=== PATIENT | female | born 1990 | race African-American/Black ===

== ENCOUNTER 2018-04-22 02:54 | Emergency (ER) | payer MEDICARE, OTHER ==
[2018-04-22 03:01] VITALS: BP 132/70; PULSE 69; RESP 18; TEMP 97.8; O2SAT 99
--- NOTE | 2018-04-22 03:30 | PD ---
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 Said she has been spotting for a week but more bleeding today. Denies any fever, chest pain, sob, n/v, dysuria, diarrhea. Pt has not seen an OBGYN for this yet. PFSH Past Medical History Medical History: Denies Significant Hx Asthma: Yes Diminished Hearing: No Gastrointestinal Disorders: No Genitourinary: No Musculoskeletal: No Neurologic: No Reproductive: No (RECENT MISCARRAGE) Respiratory: No ?: Past Surgical History Surgical History: No Previous Surgery Other Surgery: No Social History Alcohol Use: No Tobacco Use: No Substance Use: No Allergies-Medications (Allergen,Severity, Reaction): Coded Allergies: No Known Allergies (Verified Adverse Reaction, Unknown, 04/22/18) Reported Meds & Prescriptions Reported Meds & Active Scripts Active Review of Systems Except as stated in HPI: all other systems reviewed are Neg Physical Exam Narrative GENERAL: 27yo F not in distress. SKIN: Focused skin assessment warm/dry. HEAD: Atraumatic. Normocephalic. EYES: Pupils equal and round. No scleral icterus. No injection or drainage. ENT: No nasal bleeding or discharge. Mucous membranes pink and moist. NECK: Trachea midline. No JVD. CARDIOVASCULAR: Regular rate and rhythm. No murmur appreciated. RESPIRATORY: No accessory muscle use. Clear to auscultation. Breath sounds equal bilaterally. GASTROINTESTINAL: Abdomen soft, +TTP epigastric and suprapubic region. No rebound tenderness or guarding. PELVIC: No blood in vaginal vault. Cervical os closed. No CMT or adnexal tenderness bilaterally. MUSCULOSKELETAL: No obvious deformities. No clubbing. No cyanosis. No edema. NEUROLOGICAL: Awake and alert. No obvious cranial nerve deficits. Motor grossly within normal limits. Normal speech. PSYCHIATRIC: Appropriate mood and affect; insight and judgment normal. Data Data Last Documented VS Vital Signs Date Time Temp Pulse Resp B/P (MAP) Pulse Ox O2 Delivery O2 Flow Rate FiO2 04/22/18 03:01 97.8 69 18 132/70 (90) 99 Orders Orders Beta Hcg (Quant/Titer) (04/22/18 03:24) Complete Blood Count With Diff (04/22/18 03:24) Basic Metabolic Panel (Bmp) (04/22/18 03:24) Gc And Chlamydia Pcr (04/22/18 03:24) Type And Screen (04/22/18 03:24) Us Pelvis (Ques Preg/Ectopic) (04/22/18 ) Wet Prep Profile (04/22/18 03:24) Urinalysis - C+S If Indicated (04/22/18 03:24) Lipase (04/22/18 03:24) Acetaminophen (Tylenol) (04/22/18 03:45) Ed Urine Pregnancytest Poc (04/22/18 04:26) Labs Laboratory Tests Test 04/22/18 03:55 04/22/18 04:23 Urine Color YELLOW Urine Turbidity CLEAR Urine pH 7.0 Urine Specific [place] 1.023 Urine Protein TRACE mg/dL Urine Glucose (UA) NEG mg/dL Urine Ketones NEG mg/dL Urine Occult Blood MOD Urine Nitrite NEG Urine Bilirubin NEG Urine Urobilinogen LESS THAN 2.0 MG/DL Urine Leukocyte Esterase SMALL Urine RBC LESS THAN 1 /hpf Urine WBC 4 /hpf Urine Squamous Epithelial Cells 3 /hpf Urine Mucus FEW /lpf Microscopic Urinalysis Comment CULT NOT INDICATED Clue Cells (Wet Prep) NONE SEEN Vaginal Trichomonas (Wet Prep) NONE SEEN Vaginal Yeast (Wet Prep) NONE SEEN White Blood Count 6.3 TH/MM3 Red Blood Count 4.79 MIL/MM3 Hemoglobin 12.8 GM/DL Hematocrit 37.7 % Mean Corpuscular Volume 78.6 FL Mean Corpuscular Hemoglobin 26.7 PG Mean Corpuscular Hemoglobin Concent 34.0 % Red Cell Distribution Width 14.6 % Platelet Count 287 TH/MM3 Mean Platelet Volume 8.6 FL Neutrophils (%) (Auto) 70.4 % Lymphocytes (%) (Auto) 19.8 % Monocytes (%) (Auto) 9.4 % Eosinophils (%) (Auto) 0.1 % Basophils (%) (Auto) 0.3 % Neutrophils # (Auto) 4.4 TH/MM3 Lymphocytes # (Auto) 1.2 TH/MM3 Monocytes # (Auto) 0.6 TH/MM3 Eosinophils # (Auto) 0.0 TH/MM3 Basophils # (Auto) 0.0 TH/MM3 CBC Comment DIFF FINAL Differential Comment Blood Urea Nitrogen 7 MG/DL Creatinine 0.67 MG/DL Random Glucose 91 MG/DL Calcium Level 8.6 MG/DL Sodium Level 138 MEQ/L Potassium Level 3.6 MEQ/L Chloride Level 104 MEQ/L Carbon Dioxide Level 25.6 MEQ/L Anion Gap 8 MEQ/L Estimat Glomerular Filtration Rate 126 ML/MIN Lipase 64 U/L Human Chorionic Gonadotropin, Quant 718080 MIU/ML [facility] Medical Decision Making Medical Screen Exam Complete: Yes Emergency Medical Condition: Yes Differential Diagnosis Threatened vs. ectopic vs. incomplete vs. subchorionic hemorrhage Narrative Course 27yo F who is 10 weeks here with vaginal bleeding and cramping. Labs reviewed, no leukocytosis. H/H normal. bHCG is [id number]. BMP unremarkable. UA showed WBC 4. Squamous 3. Culture not indicated. Wet prep negative. Type and screen is O positive. No rhogam needed. Pt given acetaminophen which helped with pain. Abdominal exam unremarkable. US showed single early intrauterine 7wk1d. Pt has OBGYN appointment already. Return precautions given. Diagnosis Primary Impression: Vaginal bleeding during Patient Instructions: General Instructions Departure Forms: Tests/Procedures Additional Instructions: Please follow up with your OBGYN on your appointment date. Return to the ED if symptoms worsen. Med/Other Pt SpecificInfo: Prescription(s) given Scripts Acetaminophen (Tylenol) 325 Mg Tab 650 MG PO Q6H Y for PAIN SCALE 1 TO 4, #20 TAB 0 Refills Prov: QuirozLeslie DO 04/22/18 Disposition: 01 DISCHARGE HOME Condition: Stable Leslie Quiroz DO April 22, 2018 03:30
[2018-04-22] MEDS ORDERED: ACETAMINOPHEN 325 MG TAB PO ONE (03:45)
[2018-04-22 04:29] LABS: AUTOMATED NEUTROPHIL # 4.4 TH/MM3 (1.8-7.7); BASOPHIL % 0.3 % (0.0-2.0); EOSINOPHIL % 0.1 % (0.0-4.0); HEMATOCRIT 37.7 % (35.0-46.0); HEMOGLOBIN 12.8 GM/DL (11.6-15.3); LYMPH % 19.8 % (9.0-44.0); LYMPHOCYTE # 1.2 TH/MM3 (1.0-4.8); MEAN CELL VOLUME 78.6 FL (80.0-100.0); MEAN CORPUSCULAR HEMOGLOBIN 26.7 PG (27.0-34.0); MEAN PLATELET VOLUME 8.6 FL (7.0-11.0); MONO % 9.4 % (0.0-8.0); MONOCYTE # 0.6 TH/MM3 (0-0.9); NEUT % 70.4 % (16.0-70.0); PLATELET COUNT 287 TH/MM3 (150-450); RED BLOOD COUNT 4.79 MIL/MM3 (4.00-5.30); RED CELL DISTRIBUTION WIDTH 14.6 % (11.6-17.2); WHITE BLOOD COUNT 6.3 TH/MM3 (4.0-11.0)
[2018-04-22 04:29] LABS: BILIRUBIN, URINE NEG (NEG); BLOOD, URINE MOD (NEG); GLUCOSE,URINE NEG (NEG); KETONE, URINE NEG (NEG); MUCUS URINE FEW /lpf (OCC); NITRITE,URINE NEG (NEG); SQUAMOUS EPITHELIAL CELL URINE 3 /hpf (0-5); URINE COLOR YELLOW (YELLW/STRAW); URINE LEUKOCYTE ESTERASE SMALL (NEG)
[2018-04-22 05:01] LABS: BICARBONATE 25.6 MEQ/L (21.0-32.0); CALCIUM 8.6 MG/DL (8.5-10.1); CREATININE 0.67 MG/DL (0.50-1.00)
--- NOTE | 2018-04-22 06:22 | RADRPT ---
EXAM DATE: 04/22/2018 6:10 AM EDT AGE/SEX: 27 years / Female INDICATIONS: Spotting for a week. CLINICAL DATA: This is the patient's initial encounter. Patient reports that signs and symptoms have been present for 4 - 6 days and indicates a pain score of 3/10. MEDICAL/SURGICAL HISTORY: None. None. COMPARISON: No prior [facility] exams available for comparison. No external comparison. MEASUREMENTS: Uterus:__12.4 x 6.0 x 6.9 Endometrial Stripe:__>20 mm Right Ovary:__ 3.1 x 1.9 x 1.8 Left Ovary:__ 2.8 x 1.9 x 1.9 FINDINGS: Uterus: There is a single early intrauterine present. There is a small yolk sac and pole. The crown-rump length corresponds to 7 week 1 day menstrual age. heart rate 150 bpm was o btained. Right Ovary: Measures Left Ovary: Measures Other: No free fluid. CONCLUSION: 1. Single early intrauterine corresponding to a 7 week 1 day menstrual age. Electronically signed by: Good Nielsen MD 04/22/2018 6:20 AM EDT
[2018-04-22] MEDS ORDERED: TYLE325T PO (06:31)
== END 2018-04-22 07:05 | disposition home or self-care (01) ==
LOC: NEPC 02:54
DX: O20.9 Hemorrhage in early pregnancy, unspecified (principal); O99.511 Diseases of the respiratory system complicating pregnancy, first trimester; J45.909 Unspecified asthma, uncomplicated; Z3A.10 10 weeks gestation of pregnancy
CPT/HCPCS: 76700; 80048; 81001; 83690; 84702; 84703; 85025; 86850; 86900; 86901; 87210; 87491; 87591

== ENCOUNTER 2018-04-27 15:56 | Emergency (ER) | payer OTHER ==
[~2018-04-27] VITALS: Ht 162.6 cm; Wt 92.0 kg
[~2018-04-27 15:56] MED LIST: TYLE325T PO
[2018-04-27 16:03] VITALS: BP 141/89; PULSE 70; RESP 18; TEMP 98.8; O2SAT 100
--- NOTE | 2018-04-27 16:26 | PD ---
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 She has no acute medical issues otherwise. 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 She denies fever, chills, or other symptoms. She has no abdominal pain at this time. She has no known drug allergies. PFSH Past Medical History Asthma: Yes Diminished Hearing: No Gastrointestinal Disorders: No Genitourinary: No Musculoskeletal: No Neurologic: No Reproductive: No (RECENT MISCARRAGE) Respiratory: No Tetanus Vaccination: Unknown Influenza Vaccination: No ?: LMP: february 08, 2018 Past Surgical History Surgical History: No Previous Surgery Other Surgery: No Social History Alcohol Use: No Tobacco Use: No Substance Use: No Allergies-Medications (Allergen,Severity, Reaction): Coded Allergies: No Known Allergies (Verified Adverse Reaction, Unknown, 04/27/18) Reported Meds & Prescriptions Reported Meds & Active Scripts Active No Active Prescriptions or Reported Medications Review of Systems Except as stated in HPI: all other systems reviewed are Neg General / Constitutional: No: Fever Eyes: No: Visual changes HENT: No: Headaches Cardiovascular: No: Chest Pain or Discomfort Respiratory: No: Shortness of Breath Gastrointestinal: No: Abdominal Pain Genitourinary: No: Dysuria Musculoskeletal: No: Pain Skin: No Rash Neurologic: No: Weakness Psychiatric: No: Depression Endocrine: No: Polydipsia Hematologic/Lymphatic: No: Easy Bruising Physical Exam Narrative GENERAL: Patient is in no acute distress. SKIN: Warm and dry. Normal color. Normal turgor HEAD: Atraumatic. Normocephalic. EYES: Pupils equal and round. No scleral icterus. No injection or drainage. ENT: No nasal bleeding or discharge. Mucous membranes pink and moist. Pharynx is clear. Airway is patent NECK: Trachea midline. Supple CARDIOVASCULAR: Regular rate and rhythm. RESPIRATORY: No accessory muscle use. Clear to auscultation. Breath sounds equal bilaterally. GASTROINTESTINAL: Abdomen soft, non-tender, nondistended. Hepatic and splenic margins not palpable. No CVA tenderness per MUSCULOSKELETAL: Extremities without clubbing, cyanosis, or edema. No obvious deformities. NEUROLOGICAL: Awake and alert. No obvious cranial nerve deficits. Motor grossly within normal limits. Five out of 5 muscle strength in the arms and legs. Normal speech. PSYCHIATRIC: Appropriate mood and affect; insight and judgment normal. Data Data Last Documented VS Vital Signs Date Time Temp Pulse Resp B/P (MAP) Pulse Ox O2 Delivery O2 Flow Rate FiO2 04/27/18 16:03 98.8 70 18 141/89 (106) 100 Orders Orders Azithromycin Powd Pack (Zithromax Powd P (04/27/18 16:30) Lidocaine 1% Inj (50 Ml) (Xylocaine 1% I (04/27/18 16:30) Ceftriaxone Inj (Rocephin Inj) (04/27/18 16:30) MDM Medical Decision Making Medical Screen Exam Complete: Yes Emergency Medical Condition: Yes Medical Record Reviewed: Yes Differential Diagnosis Gonorrhea. Chlamydia. Early . Narrative Course Patient is treated with Rocephin 1 g IM. Patient is given 1 g of azithromycin p.o. Patient is to follow-up with her WELDING MACHINE OPERATOR THERMIT as scheduled or sooner as needed. Diagnosis Primary Impression: Gonorrhea Additional Impressions: Chlamydia Qualified Codes: Z3A.01 - Less than 8 weeks gestation of Referrals: Account Management Assistant Patient Instructions: Chlamydia (ED), General Instructions, Gonorrhea (ED) Additional Instructions: Patient is treated with Rocephin 1 g IM. Patient is given 1 g of azithromycin p.o. Patient is to follow-up with her WELDING MACHINE OPERATOR THERMIT as scheduled or sooner as needed. Med/Other Pt SpecificInfo: No Meds Exist/No RX given Scripts No Active Prescriptions or Reported Meds Disposition: 01 DISCHARGE HOME Condition: Stable Harshal Mckoy April 27, 2018 16:26
[2018-04-27] MEDS ORDERED: LIDOCAINE HCL 1% 50 ML VIAL IM ONE (16:30)
[2018-04-27] MEDS ORDERED: AZITHROMYCIN PWD FOR SUSP 1 GM PACKET PO ONE (16:30)
== END 2018-04-27 17:26 | disposition home or self-care (01) ==
LOC: NEPK 15:56
DX: O26.891 Other specified pregnancy related conditions, first trimester (principal); O99.511 Diseases of the respiratory system complicating pregnancy, first trimester; A54.9 Gonococcal infection, unspecified; A74.9 Chlamydial infection, unspecified; Z3A.08 8 weeks gestation of pregnancy
CPT/HCPCS: 96372; 99283; J0696